=== PATIENT | female | born 1995 | race Caucasian/White ===

== ENCOUNTER → 2017-05-28 | Outpatient (CLI) | payer MEDICAID ==
[~2017-05-28] MED LIST: IOPAMIDOL (ISOVUE 370) 100 ML BTL IV ONE
== END ==
LOC: FIMAGING 10:07
PROVIDERS: ATTEND Psychiatry & Neurology Neurology
DX: G43.109 Migraine with aura, not intractable, without status migrainosus (principal); R40.4 Transient alteration of awareness; R55 Syncope and collapse
CPT/HCPCS: Q9967